=== PATIENT | female | born 1950 | race Caucasian/White ===

== ENCOUNTER 2017-05-21 08:29 | Outpatient (CLI) | payer BC, MEDICARE ==
[2017-05-21 12:52] LABS: CHOL/HDL RATIO 3.5 (<4.4); CHOLESTEROL 224 mg/dL; HDL CHOLESTEROL 64 mg/dL; LDL/HDL RATIO 2.3 (<4.4); TRIGLYCERIDES 75 mg/dL; VLDL CHOLESTEROL 15 mg/dL
[2017-05-21 13:21] LABS: THYROID STIMULATING HORMONE 0.21 uIU/mL (0.34-5.60)
== END 2017-05-21 08:30 | disposition home or self-care (01) ==
LOC: LAB.F 08:29
PROVIDERS: ATTEND Family Medicine
DX: E78.5 Hyperlipidemia, unspecified (principal)
CPT/HCPCS: 36415; 80061; 84439; 84443

== ENCOUNTER 2018-01-22 09:04 | Outpatient (CLI) | payer MEDICARE, BC ==
[2018-01-22 17:45] LABS: BASOPHILS % (AUTO) 0.9 %; EOSINOPHILS # (AUTO) 0.1 10^3/uL (0.0-0.7); EOSINOPHILS % (AUTO) 1.7 %; LYMPHOCYTES # (AUTO) 1.1 10^3/uL (1.5-3.5); LYMPHOCYTES % (AUTO) 25.3 %; MEAN CORPUSCULAR HEMOGLOBIN 29.7 pg (27.0-31.0); MEAN CORPUSCULAR HGB CONC 32.9 g/dL (32.0-36.0); MEAN CORPUSCULAR VOLUME 90.4 fL (81.0-99.0); MEAN PLATELET VOLUME 9.3 fL (7.9-10.8); MONOCYTES # (AUTO) 0.4 10^3/uL (0.0-1.0); MONOCYTES % (AUTO) 9.9 %; NEUTROPHILS # (AUTO) 2.8 10^3/uL (1.5-6.6); NEUTROPHILS % (AUTO) 62.2 %; PLT - PLATELET COUNT 209 10^3/uL (130-450); RED BLOOD COUNT 4.71 10^6/uL (4.20-5.40); RED CELL DISTRIBUTION WIDTH 14.2 % (12.0-15.0); WHITE BLOOD COUNT 4.5 x10^3/uL (4.8-10.8)
== END 2018-01-22 09:05 | disposition home or self-care (01) ==
LOC: LAB.F 09:04
PROVIDERS: ATTEND Family Medicine
DX: M89.9 Disorder of bone, unspecified (principal); E78.5 Hyperlipidemia, unspecified; E55.9 Vitamin D deficiency, unspecified; R41.3 Other amnesia; E03.9 Hypothyroidism, unspecified
CPT/HCPCS: 36415; 80053; 80061; 82306; 82607; 83721; 84443; 85025

== ENCOUNTER 2018-02-01 11:15 | Outpatient (CLI) | payer MEDICARE, BC | END 2018-02-01 11:16 | disposition home or self-care (01) | LOC: DI 11:15 | PROVIDERS: ATTEND Family Medicine | DX: R01.1 Cardiac murmur, unspecified (principal); I08.1 Rheumatic disorders of both mitral and tricuspid valves | CPT/HCPCS: 93306 ==

== ENCOUNTER 2018-02-05 09:12 | Outpatient (CLI) | payer MEDICARE, BC | END 2018-02-05 09:13 | disposition home or self-care (01) | LOC: LAB.F 09:12 | PROVIDERS: ATTEND Family Medicine | DX: M89.9 Disorder of bone, unspecified (principal); E78.5 Hyperlipidemia, unspecified; E03.9 Hypothyroidism, unspecified; E55.9 Vitamin D deficiency, unspecified | CPT/HCPCS: 36415; 80053; 80061; 82306; 83721; 84443 ==

== ENCOUNTER 2018-02-06 08:53 | Outpatient (CLI) | payer MEDICARE, BC ==
[2018-02-06 17:32] LABS: BASOPHILS % (AUTO) 1.1 %; EOSINOPHILS # (AUTO) 0.1 10^3/uL (0.0-0.7); EOSINOPHILS % (AUTO) 2.7 %; HGB - HEMOGLOBIN 13.8 g/dL (12.0-16.0); LYMPHOCYTES # (AUTO) 1.2 10^3/uL (1.5-3.5); LYMPHOCYTES % (AUTO) 29.5 %; MEAN CORPUSCULAR HEMOGLOBIN 29.7 pg (27.0-31.0); MEAN CORPUSCULAR HGB CONC 32.9 g/dL (32.0-36.0); MEAN CORPUSCULAR VOLUME 90.2 fL (81.0-99.0); MEAN PLATELET VOLUME 8.9 fL (7.9-10.8); MONOCYTES # (AUTO) 0.3 10^3/uL (0.0-1.0); MONOCYTES % (AUTO) 8.8 %; NEUTROPHILS # (AUTO) 2.3 10^3/uL (1.5-6.6); NEUTROPHILS % (AUTO) 57.9 %; PLT - PLATELET COUNT 160 10^3/uL (130-450); RED BLOOD COUNT 4.64 10^6/uL (4.20-5.40); RED CELL DISTRIBUTION WIDTH 14.2 % (12.0-15.0); WHITE BLOOD COUNT 3.9 x10^3/uL (4.8-10.8)
[2018-02-06 17:48] LABS: ALBUMIN 4.1 g/dL (3.2-5.5); ALBUMIN/GLOBULIN RATIO 1.4 (1.0-2.2); ALKALINE PHOSPHATASE 80 IU/L (42-121); ALT ALANINE AMINOTRANSFERASE 26 IU/L (10-60); AST ASPARTATE AMINOTRANSFERASE 31 IU/L (10-42); BILIRUBIN,TOTAL 1.3 mg/dL (0.2-1.0); BUN - BLOOD UREA NITROGEN 13 mg/dL (6-20); CALCIUM 9.2 mg/dL (8.5-10.3); CARBON DIOXIDE - CO2 26 mmol/L (21-32); CHLORIDE 103 mmol/L (101-111); CHOL/HDL RATIO 3.8 (<4.4); CHOLESTEROL 189 mg/dL; CREATININE 0.5 mg/dL (0.4-1.0); GFR - MDRD 122 (>89); GLUCOSE 89 mg/dL (70-100); HDL CHOLESTEROL 50 mg/dL; LDL CHOLESTEROL,CALCULATED 124 mg/dL; LDL/HDL RATIO 2.5 (<4.4); SODIUM 137 mmol/L (135-145); TOTAL PROTEIN 7.1 g/dL (6.7-8.2); VLDL CHOLESTEROL 15 mg/dL
[2018-02-06 17:57] LABS: THYROID STIMULATING HORMONE < 0.08 uIU/mL (0.34-5.60)
[2018-02-06 17:58] LABS: DIFFERENTIAL COMMENT MANUAL=AUTO DIFF; PLATELET ESTIMATE, MANUAL NORMAL (130-450,000) (NORMAL); PLATELET MORPHOLOGY NORMAL APPEARANCE (NORMAL); RBC MORPHOLOGY (MULTIPLE) NORMAL APPEARANCE (NORMAL)
[2018-02-06 18:36] LABS: FREE T4 (FREE THYROXINE) 2.03 ng/dL (0.58-1.64)
== END 2018-02-06 08:54 | disposition home or self-care (01) ==
LOC: LAB.F 08:53
PROVIDERS: ATTEND Family Medicine
DX: M89.9 Disorder of bone, unspecified (principal); E78.5 Hyperlipidemia, unspecified; E55.9 Vitamin D deficiency, unspecified; R41.3 Other amnesia; E03.9 Hypothyroidism, unspecified
CPT/HCPCS: 36415; 80053; 80061; 82306; 82607; 83721; 84439; 84443; 85025

== ENCOUNTER 2018-11-24 14:55 | Outpatient (CLI) | payer MEDICARE, BC ==
[2018-11-24 15:21] LABS: ALBUMIN 4.1 g/dL (3.2-5.5); ALBUMIN/GLOBULIN RATIO 1.5 (1.0-2.2); CALCIUM 9.1 mg/dL (8.5-10.3); CREATININE 0.8 mg/dL (0.4-1.0); TOTAL PROTEIN 6.9 g/dL (6.7-8.2)
[2018-11-24 16:14] LABS: HGB - HEMOGLOBIN 13.4 g/dL (12.0-16.0); MEAN CORPUSCULAR HEMOGLOBIN 31.5 pg (27.0-31.0); MEAN CORPUSCULAR HGB CONC 34.4 g/dL (32.0-36.0); MEAN CORPUSCULAR VOLUME 91.4 fL (81.0-99.0); MEAN PLATELET VOLUME 8.1 fL (7.9-10.8); RED BLOOD COUNT 4.27 10^6/uL (4.20-5.40); RED CELL DISTRIBUTION WIDTH 13.6 % (12.0-15.0); WHITE BLOOD COUNT 4.3 x10^3/uL (4.8-10.8)
== END 2018-11-24 14:56 | disposition home or self-care (01) ==
LOC: LAB 14:55
PROVIDERS: ATTEND Dermatology
DX: Z51.81 Encounter for therapeutic drug level monitoring (principal); L43.9 Lichen planus, unspecified
CPT/HCPCS: 36415; 80053; 85027

== ENCOUNTER 2018-12-05 12:19 | Outpatient (CLI) | payer MEDICARE, BC ==
--- NOTE | 2018-12-08 11:42 | DEXA Report ---
Reason: BONE DISORDER Procedure Date: 12/05/2018 Accession Number: [id number] / [id number] Procedure: DEX - Dexa Spine and/or Hip CPT Code: FULL RESULT: EXAM: Dexa Spine and/or Hip DATE: 12/05/2018 12:37 PM CLINICAL HISTORY: BONE DISORDER. Rheumatoid/inflammatory arthritis. Steroid use. Thyroid replacement therapy. Multiple sclerosis. TECHNIQUE: Dual energy x-ray absorptiometry (DXA) was performed on a IActionable System. Regions measured are the AP Spine, femoral neck, and if needed forearm. COMPARISON: None. In accordance with the International Society for Clinical Densitometry (ISCD) guidelines, data from previous exams may be reanalyzed using current recommendations and techniques. This is done to allow a more accurate basis for comparison with the current study. FINDINGS: The data for the lumbar spine is as follows: BMD (g/cm/cm) T-SCORE Z-SCORE REGION L1 1.131 0.0 1.1 L2 1.216 0.1 1.3 L3 1.470 2.3 3.4 L4 1.381 1.5 2.6 TOTAL 1.307 1.1 2.2 NOTE: All evaluable vertebrae are used for classification The data for the hip is as follows: BMD (g/cm/cm) T-SCORE Z-SCORE REGION Neck 0.838 -1.4 -0.1 TOTAL 0.978 -0.2 0.8 NOTE: The femoral neck or total proximal femur, whichever is lowest, is used for classification. IMPRESSION: THE WHO CLASSIFICATION BASED ON THE INTERNATIONAL REFERENCE STANDARD IS OSTEOPENIA. THE FRACTURE RISK IS INCREASED. RECOMMENDATION: Patients with diagnosis of osteoporosis or osteopenia should have regular bone mineral density assessment. For those eligible for Medicare, routine testing is allowed once every 2 years. Testing frequency can be increased for patients who have rapidly progressing disease or for those who are receiving medical therapy to restore bone mass. COMMENT: World Health Organization (WHO) definitions for osteoporosis and osteopenia: NORMAL BMD: T-score at -1.0 or higher, fracture risk is low OSTEOPENIA BMD: T-score between -1.0 and -2.5, fracture risk is increased. OSTEOPOROSIS BMD: T-score at -2.5 or lower, fracture risk is high. National Osteoporosis Foundation recommends: 1. Obtain adequate dietary calcium (at least 1200 mg per day) and vitamin D (400-800 international units per day). 2. Participate, as appropriate, in regular weightbearing and muscle-strengthening exercise. 3. Avoid tobacco use and reduce alcohol and caffeine intake. 4. For more detailed information see the website at www.NOF.org.
== END 2018-12-05 12:20 | disposition home or self-care (01) ==
LOC: DI 12:19
PROVIDERS: ATTEND Nurse Practitioner
DX: M85.89 Other specified disorders of bone density and structure, multiple sites (principal)
CPT/HCPCS: 77080

== ENCOUNTER 2019-04-28 10:51 | Outpatient (CLI) | payer MEDICARE, BC ==
[2019-04-28 17:40] LABS: HGB - HEMOGLOBIN 14.5 g/dL (12.0-16.0); MEAN CORPUSCULAR HEMOGLOBIN 30.6 pg (27.0-31.0); MEAN CORPUSCULAR HGB CONC 32.9 g/dL (32.0-36.0); MEAN CORPUSCULAR VOLUME 93.1 fL (81.0-99.0); RED BLOOD COUNT 4.74 10^6/uL (4.20-5.40); WHITE BLOOD COUNT 4.8 x10^3/uL (4.8-10.8)
[2019-04-28 18:00] LABS: ALBUMIN 4.1 g/dL (3.2-5.5); ALBUMIN/GLOBULIN RATIO 1.2 (1.0-2.2); BILIRUBIN,TOTAL 0.8 mg/dL (0.2-1.0); CALCIUM 9.6 mg/dL (8.5-10.3); CREATININE 0.6 mg/dL (0.4-1.0); TOTAL PROTEIN 7.5 g/dL (6.7-8.2)
== END 2019-04-28 10:52 | disposition home or self-care (01) ==
LOC: LAB.F 10:51
PROVIDERS: ATTEND Dermatology
DX: L43.9 Lichen planus, unspecified (principal); Z51.81 Encounter for therapeutic drug level monitoring
CPT/HCPCS: 36415; 80053; 85027

== ENCOUNTER 2019-04-29 09:39 | Outpatient (CLI) | payer MEDICARE, BC ==
[2019-04-29 12:59] LABS: CHOL/HDL RATIO 3.2 (<4.4); CHOLESTEROL 205 mg/dL; HDL CHOLESTEROL 65 mg/dL; LDL CHOLESTEROL,CALCULATED 118 mg/dL; LDL/HDL RATIO 1.8 (<4.4); VLDL CHOLESTEROL 22 mg/dL
[2019-04-29 13:25] LABS: FREE T4 (FREE THYROXINE) 1.68 ng/dL (0.58-1.64)
== END 2019-04-29 09:40 | disposition home or self-care (01) ==
LOC: LAB.WCP 09:39
PROVIDERS: ATTEND Family Medicine
DX: E78.5 Hyperlipidemia, unspecified (principal); E03.9 Hypothyroidism, unspecified
CPT/HCPCS: 36415; 80061; 83721; 84439; 84443

== ENCOUNTER 2021-01-17 08:00 | Outpatient (CLI) | payer MEDICARE, OTHER | END 2021-01-17 08:01 | disposition home or self-care (01) | LOC: DI 08:00 | PROVIDERS: ATTEND Internal Medicine Hematology & Oncology | DX: C50.412 Malignant neoplasm of upper-outer quadrant of left female breast (principal); I34.0 Nonrheumatic mitral (valve) insufficiency | CPT/HCPCS: 93306 ==

== ENCOUNTER 2021-04-18 07:50 | Outpatient (CLI) | payer MEDICARE, OTHER | END 2021-04-18 07:51 | disposition home or self-care (01) | LOC: DI 07:50 | PROVIDERS: ATTEND Internal Medicine Hematology & Oncology | DX: C50.412 Malignant neoplasm of upper-outer quadrant of left female breast (principal); I27.20 Pulmonary hypertension, unspecified; I51.7 Cardiomegaly | CPT/HCPCS: 93306 ==

== ENCOUNTER 2021-05-15 14:45 | Outpatient (CLI) | payer MEDICARE, OTHER ==
[2021-05-15] MEDS ORDERED: GADOBUTROL 10 MMOL/10 ML VIAL ONE (14:59)
[2021-05-15] MEDS ORDERED: GADOBUTROL 10 MMOL/10 ML VIAL IVP ONE (17:02)
--- NOTE | 2021-05-16 11:35 | MRI Report ---
PROCEDURE: Brain W/WO INDICATIONS: BREAST CA, R/P BRAIN METS CONTRAST: IV CONTRAST: Optiray 320 ml: 7 TECHNIQUE: Noncontrast axial T1 spin echo, axial T2 fast spin echo, sagittal and axial FLAIR, coronal T2 fast sp in echo, axial gradient echo, axial diffusion and ADC through the brain. After the administration of contrast, axial and coronal T1 spin echo with fat saturation through the brain. COMPARISON: Bone scan 08/24/2020 FINDINGS: Image quality: Excellent. CSF spaces: Basal cisterns are patent. No extra-axial fluid collections. Ventricles are normal in size and shape. Brain: No midline shift. No intracranial bleeds or masses. No abnormal intracranial enhancement. There is cerebral volume loss for age. There is periventricular white matter chronic small vessel is chemic change. The brainstem appears normal. Diffusion-weighted images demonstrate no acute ischemi c insults. No chronic ischemic insults. Normal intravascular flow voids are present. Skull and face: Calvarial marrow is normal in signal. Orbits appear normal. Sinuses: Sinuses and mastoids appear clear. IMPRESSION: 1. No acute intracranial process. 2. Moderate atrophy and chronic microvascular ischemic changes. 3. No evidence of metastatic disease. Reviewed by: Magda Lopez MD on 05/16/2021 11:33 AM PDT Approved by: Magda Lopez MD on 05/16/2021 11:33 AM PDT Station ID: [id number]
== END 2021-05-15 14:46 | disposition home or self-care (01) ==
LOC: DI 14:45
PROVIDERS: ATTEND Specialist
DX: C50.412 Malignant neoplasm of upper-outer quadrant of left female breast (principal)
CPT/HCPCS: 70553; A9585

== ENCOUNTER 2021-06-23 08:00 | Outpatient (CLI) | payer MEDICARE, OTHER | END 2021-06-23 23:59 | disposition home or self-care (01) | LOC: LAB.S 08:00 | PROVIDERS: ATTEND Physician Assistant Medical | DX: R10.32 Left lower quadrant pain (principal) | CPT/HCPCS: 87086 ==

== ENCOUNTER 2021-06-27 10:48 | Emergency (ER) | payer MEDICARE, OTHER ==
--- NOTE | 2021-06-27 13:16 | ED Physician Documentation ---
History of Present Illness - Stated complaint Stated Complaint: ABD PX - Chief complaint Chief Complaint: Abd Pain - History obtained from History obtained from: Patient, Family - Additonal information Additional information: Patient comes emergency department chief complaint of abdominal pain and constipation that Has been going on since she began her most recent chemotherapeutic agent. She states it has been roughly a month, and that she has been on various stool softeners and laxatives. She states that she is currently taking cold right and MiraLAX, but it does not seem to be doing anything for her. She states that she had a small, firm bowel movement this morning and that her last member for that was 5 days ago and was also smaller than expected. Patient states she has been eating normally as far as amounts of food and that she tries to get some fiber in her diet. Patient states that the only thing that seems to have worked for her previously is senna, but it gave her very bad diarrhea and so she decided not to use that again. She also states that her PA told her not to take laxatives on a regular basis, Because it could cause her bowels not to work properly. As such, the patient has not tried senna again. Patient denies any nausea or vomiting. She states she initially had left lower quadrant abdominal pain that has slowly spread across her lower abdomen and now she has a little discomfort in her upper abdomen, 2. Patient denies any other complaints at this time. She is currently being treated for breast cancer, though she states she has been told by her oncologist that she is cancer free. She had a double mastectomy this spring and has been on a variety of chemotherapeutic agents over the course of her perez with cancer. She states she has about 10 more months on the current regimen before she switches to hormonal therapy. No other complaints at this time. No fevers or chills. No dysuria. No back pain. Review of Systems Ten Systems: 10 systems reviewed and negative Constitutional: reports: Reviewed and negative. denies: Fever Eyes: reports: Reviewed and negative Ears: reports: Reviewed and negative Nose: reports: Reviewed and negative Throat: reports: Reviewed and negative Cardiac: reports: Reviewed and negative Respiratory: reports: Reviewed and negative GI: reports: Abdominal Pain, Constipation. denies: Nausea, Vomiting, Diarrhea : reports: Reviewed and negative Skin: reports: Reviewed and negative Musculoskeletal: reports: Reviewed and negative Neurologic: reports: Reviewed and negative Psychiatric: reports: Reviewed and negative Endocrine: reports: Reviewed and negative Immunocompromised: reports: Reviewed and negative PD PAST MEDICAL HISTORY - Past Medical History Past Medical History: Yes Cardiovascular: High cholesterol Respiratory: None Neuro: Multiple sclerosis Endocrine/Autoimmune: HyPOthyroidism GI: Other [employer]: Breast cancer : Frequency HEENT: Chronic hearing loss Psych: None Musculoskeletal: Fibromyalgia Derm: Other - Past Surgical History Past Surgical History: Yes Ortho: Knee replacement /[employer]: Mastectomy - Present Medications Home Medications: Ambulatory Orders Medication Instructions Recorded Confirmed Lidocaine/Prilocain 2.5% Cream 5 applic TOP UD #1 tube 10/04/20 06/27/21 [Emla 2.5% Cream] Magic Mouth Wash 15 ml PO Q4HR PRN 10/11/20 06/27/21 Docusate Sodium 100Mg Capsule 100 mg PO BID 06/27/21 06/27/21 [Colace 100Mg Capsule] Levothyroxine Sodium [Synthroid] 150 mcg PO DAILY 06/27/21 06/27/21 polyethylene glycoL 3350 [Miralax] 17 gm PO DAILY 06/27/21 06/27/21 - Allergies Allergies/Adverse Reactions: Allergies Allergy/AdvReac Type Severity Reaction Status Date / Time No Known Drug Allergies Allergy Verified 06/27/21 10:54 - Social History Does the pt smoke?: No Smoking Status: Never smoker Does the pt drink ETOH?: Yes Does the pt have substance abuse?: Yes Substance Use and Type: CBD oil / Products - Immunizations Immunizations are current?: Yes PD ED PE NORMAL - Vitals Vital signs reviewed: Yes - General General: Alert and oriented X 3, No acute distress, Well developed/nourished - HEENT HEENT: Atraumatic, PERRL, EOMI, Moist mucous membranes - Neck Neck: Supple, no meningeal sign - Cardiac Cardiac: RRR, No murmur - Respiratory Respiratory: No respiratory distress, Clear bilaterally - Abdomen Abdomen: Soft, Non distended, Other (Mild tenderness in epigastrium, as well as across low abdomen. No rebound or guarding. No particular area of more intense tenderness.) - Back Back: No CVA TTP - Derm Derm: Normal color, Warm and dry, No rash - Extremities Extremities: No deformity, No edema, No calf tenderness / cord - Neuro Neuro: Alert and oriented X 3 - Psych Psych: Normal mood, Normal affect Results - Vitals Vitals: Vital Signs - 24 hr 06/27/21 06/27/21 06/27/21 10:54 11:20 13:58 Temperature 36.6 C 36.8 C Heart Rate 88 78 76 Respiratory 16 18 20 Rate Blood Pressure 161/83 H 153/80 H 146/107 H O2 Saturation 97 98 98 06/27/21 15:19 Temperature 36.8 C Heart Rate 77 Respiratory 16 Rate Blood Pressure 149/97 H O2 Saturation 98 Oxygen O2 Source Room air - Labs Labs: Laboratory Tests 06/27/21 06/27/21 13:50 13:50 WBC 3.3 L RBC 4.18 L Hgb 12.2 Hct 37.0 MCV 88.5 MCH 29.2 MCHC 33.0 RDW 16.3 H Plt Count 69 L MPV 10.7 Neut # (Auto) 1.3 L Lymph # (Auto) 1.4 L Hamilton # (Auto) 0.5 Eos # (Auto) 0.1 Baso # (Auto) 0.0 Absolute Nucleated RBC 0.00 Nucleated RBC % 0.0 Sodium 138 Potassium 3.3 L Chloride 101 Carbon Dioxide 28 Anion Gap 9.0 BUN 6 Creatinine 0.5 Estimated GFR (MDRD) 121 Glucose 97 Calcium 9.3 Total Bilirubin 1.5 H AST 49 H ALT 31 Alkaline Phosphatase 82 Total Protein 6.9 Albumin 3.6 Globulin 3.3 Albumin/Globulin Ratio 1.1 Lipase 35 - Rads (name of study) ct abd pelvis Radiology: Final report received, EMP read indepedently, See rad report (nad) PD MEDICAL DECISION MAKING - ED course Complexity details: reviewed old records, reviewed results, re-evaluated patient, considered differential, d/w patient ED course: The patient was worked up with labs and CT scan of the abdomen and pelvis. The patient initially expressed that she would like to have an enema in the emergency department, but ultimately ended up declining this. Her CT scan was unremarkable for any acute or serious/emergent condition. The patient's main concern seem to be that she was afraid she would not be able to have her knee surgery which is coming up in the near future, if she was having issues with constipation or possible obstruction. I have discussed with her that she should check with her surgeon to determine for sure but that I do not anticipate this being a problem. We have discussed that she should continue on her stools softeners and use intermittent extra doses of laxatives in between if needed. Departure - Departure Disposition: 01 Home, Self Care Clinical Impression: Constipation Qualifiers: Constipation type: slow transit constipation Qualified Code(s): K59.01 - Slow transit constipation Condition: Stable Instructions: ED Constipation Comments: Your CT scan looks good. There is no evidence of a bowel obstruction or any other emergent condition causing your constipation or pain. Please take the enema at home as needed. You may take spot doses of laxative to help move your bowels if you go more than for 5 days without a bowel movement. There is no reason this should interfere with the upcoming surgery you have scheduled later this week. Discharge Date/Time: 06/27/21 15:25
[2021-06-27 13:53] LABS: BASOPHILS % (AUTO) 0.6 %; EOSINOPHILS # (AUTO) 0.1 10^3/uL (0.0-0.7); EOSINOPHILS % (AUTO) 2.1 %; HGB - HEMOGLOBIN 12.2 g/dL (12.0-16.0); LYMPHOCYTES # (AUTO) 1.4 10^3/uL (1.5-3.5); LYMPHOCYTES % (AUTO) 41.4 %; MEAN CORPUSCULAR HEMOGLOBIN 29.2 pg (27.0-31.0); MEAN CORPUSCULAR VOLUME 88.5 fL (81.0-99.0); MEAN PLATELET VOLUME 10.7 fL (7.9-10.8); MONOCYTES # (AUTO) 0.5 10^3/uL (0.0-1.0); MONOCYTES % (AUTO) 15.3 %; NEUTROPHILS # (AUTO) 1.3 10^3/uL (1.5-6.6); NEUTROPHILS % (AUTO) 40.3 %; PLT - PLATELET COUNT 69 10^3/uL (130-450); RED BLOOD COUNT 4.18 10^6/uL (4.20-5.40); RED CELL DISTRIBUTION WIDTH 16.3 % (12.0-15.0); WHITE BLOOD COUNT 3.3 x10^3/uL (4.8-10.8)
[2021-06-27 14:06] LABS: ALBUMIN 3.6 g/dL (3.2-5.5); ALBUMIN/GLOBULIN RATIO 1.1 (1.0-2.2); BILIRUBIN,TOTAL 1.5 mg/dL (0.2-1.0); CALCIUM 9.3 mg/dL (8.5-10.3); CREATININE 0.5 mg/dL (0.4-1.0); POTASSIUM 3.3 mmol/L (3.5-5.0); TOTAL PROTEIN 6.9 g/dL (6.7-8.2)
[2021-06-27] MEDS ORDERED: IOPAMIDOL-300 100 ML VIAL ONE (14:16)
[2021-06-27] MEDS ORDERED: IOPAMIDOL-300 100 ML VIAL IVP ONE (14:37)
--- NOTE | 2021-06-27 14:59 | CT Report ---
PROCEDURE: Abdomen/Pelvis W INDICATIONS: abd pain, no BM CONTRAST: IV CONTRAST: Isovue 300 ml: 100 PO CONTRAST: *NO PO CONTRAST TECHNIQUE: After the administration of IV contrast, 5 mm thick sections acquired from the diaphragms to the symp hysis. 5 mm thick coronal and sagittal reformats were acquired. For radiation dose reduction, the f ollowing was used: automated exposure control, adjustment of mA and/or kV according to patient size. COMPARISON: CT dated 08/24/2020 FINDINGS: Image quality: Excellent. ABDOMEN: Lung bases: Lung bases are clear. Heart size is normal. Solid organs: Liver and spleen are normal in size. There is a peripherally enhancing hypodense focus within the right hepatic lobe posteriorly measuring 22 mm, consistent with a hemangioma. Gallbladder is grossly unremarkable Biliary system is non dilated. Pancreas enhances normally. No adrenal nod ules. Kidneys demonstrate normal size and enhancement, without hydronephrosis. Peritoneum and bowel: Bowel loops demonstrate normal wall thickness and caliber. No free fluid or a ir. Nodes and vessels: No retroperitoneal or mesenteric adenopathy by size criteria. Aorta and inferior vena cava are normal in size. Miscellaneous: No ventral hernias. PELVIS: Genitourinary: Bladder wall thickness is normal. Miscellaneous: No inguinal hernias or adenopathy. Bones: No suspicious bony lesions. No vertebral body compression fractures. IMPRESSION: 1. No acute process. 2. Probable right hepatic lobe hemangioma. Confirmation with nonemergent outpatient follow-up liver p rotocol MRI is recommended. 3. Appendix not seen. No evidence of appendicitis. Reviewed by: Joshua Faith MD on 06/27/2021 2:57 PM PDT Approved by: Joshua Faith MD on 06/27/2021 2:57 PM PDT Station ID: [id number]
[2021-06-27 15:20] VITALS: BP 149/97
== END 2021-06-27 15:25 | disposition home or self-care (01) ==
LOC: ED 10:48
DX: K59.01 Slow transit constipation (principal); D49.3 Neoplasm of unspecified behavior of breast
CPT/HCPCS: 36415; 74177; 80053; 83690; 85025; 99284; 99285; Q9967

== ENCOUNTER 2021-10-18 09:15 | Outpatient (CLI) | payer MEDICARE, OTHER | END 2021-10-18 09:16 | disposition home or self-care (01) | LOC: DI 09:15 | PROVIDERS: ATTEND Internal Medicine Hematology & Oncology | DX: I08.1 Rheumatic disorders of both mitral and tricuspid valves (principal); C77.9 Secondary and unspecified malignant neoplasm of lymph node, unspecified | CPT/HCPCS: 93306 ==

== ENCOUNTER 2021-12-22 08:24 | Outpatient (CLI) | payer MEDICARE, OTHER ==
--- NOTE | 2021-12-22 17:55 | DEXA Report ---
PROCEDURE: Dexa Spine and/or Hip INDICATIONS: POST MENOPAUSAL TECHNIQUE: Dual energy x-ray absorptiometry (DXA) was performed on a Modular Patterns System. Regions measur ed are the AP Spine, femoral neck, and if needed forearm. COMPARISON: 12/05/2018. FINDINGS: Lumbar Spine: Bone Mineral Density 1.240 g/cm/cm,T score 0.5, normal Left Hip: Bone Mineral Density 0.920 g/cm/cm,T score -0.7, normal Left Femoral Neck: Bone Mineral Density 0.781 g/cm/cm, T score sinus 1.8, normal (T score greater or equal to -1.0: NORMAL) (T score from -1.1 to -2.4: OSTEOPENIA) (T score less than or equal to -2.5 to: OSTEOPOROSIS) Impression: Osteopenia. Bone mineral density has decreased 5.9% in the interval since prior exam obta glennd 12/05/2018. Patients with diagnosis of osteoporosis or osteopenia should have regular bone mineral density assess ment. For those eligible for Medicare, routine testing is allowed once every 2 years. Testing frequ ency can be increased for patients who have rapidly progressing disease or for those who are receivin g medical therapy to restore bone mass. Reviewed by: Heather Dowling MD, PhD on 12/22/2021 5:54 PM PST Approved by: Heather Dowling MD, PhD on 12/22/2021 5:54 PM PST Station ID: [id number]
== END 2021-12-22 08:25 | disposition home or self-care (01) ==
LOC: DI 08:24
PROVIDERS: ATTEND Internal Medicine Hematology & Oncology
DX: Z78.0 Asymptomatic menopausal state (principal); G35 Multiple sclerosis

== ENCOUNTER 2021-12-22 08:28 | Outpatient (CLI) | payer MEDICARE, OTHER ==
--- NOTE | 2021-12-22 17:01 | Ultrasound Report ---
PROCEDURE: Bladder INDICATIONS: MULTIPLE SCLEROSIS, POST VOID BLADDER RESIDUAL TECHNIQUE: Ultrasound of the urinary bladder is performed COMPARISON: None. FINDINGS: Prevoid urinary bladder volume is 270 cc. Postvoid residual is 100 cc. Bilateral ureteral jets are se en. IMPRESSION: Moderate postvoid residual in the urinary bladder. Reviewed by: Joshua Faith MD on 12/22/2021 4:59 PM PST Approved by: Joshua Faith MD on 12/22/2021 4:59 PM PST Station ID: [id number]
== END 2021-12-22 08:29 | disposition home or self-care (01) ==
LOC: DI 08:28
PROVIDERS: ATTEND Internal Medicine
DX: G35 Multiple sclerosis (principal)

== ENCOUNTER 2021-12-28 09:14 | Outpatient (CLI) | payer MEDICARE, OTHER | END 2021-12-28 09:15 | disposition home or self-care (01) | LOC: DI 09:14 | PROVIDERS: ATTEND Internal Medicine Hematology & Oncology | DX: C50.412 Malignant neoplasm of upper-outer quadrant of left female breast (principal); I51.7 Cardiomegaly; I27.20 Pulmonary hypertension, unspecified; I34.0 Nonrheumatic mitral (valve) insufficiency; I49.3 Ventricular premature depolarization | CPT/HCPCS: 93306 ==

== ENCOUNTER 2022-03-12 12:58 | Outpatient (CLI) | payer MEDICARE, OTHER ==
--- NOTE | 2022-03-12 15:17 | XRAY Report ---
PROCEDURE: Hips 2V BILAT INDICATIONS: BILATERAL HIP PAIN TECHNIQUE: AP view the pelvis and frog-leg lateral views of each hip. COMPARISON: Hip radiographs 08/05/2017 FINDINGS: Bones: No fractures or dislocations. No suspicious bony lesions. The visualized pelvic ring appear s intact. Mild degenerative changes are seen in the hips bilaterally. Degenerative changes are parti ally imaged in the lower lumbar spine. Soft tissues: No suspicious soft tissue calcifications or masses. IMPRESSION: Mild bilateral hip osteoarthrosis. No acute osseous abnormality. If symptoms persist or there is cont inued clinical concern, further evaluation with MRI or CT may be helpful. Reviewed by: Amari Gooden MD on 03/12/2022 3:16 PM PDT Approved by: Amari Gooden MD on 03/12/2022 3:16 PM PDT Station ID: [id number]
--- NOTE | 2022-03-12 15:19 | XRAY Report ---
PROCEDURE: Lumbar Spine 2 View INDICATIONS: LOWER BACK PAIN TECHNIQUE: 2 views of the lumbar spine were acquired. COMPARISON: None. FINDINGS: Bones: 5 [id number] vertebrae are present with tiny rudimentary ribs at the T12 level. Mild dex troconvex curvature of the lumbar spine. No vertebral body compression fractures. No suspicious bony lesions. Multilevel disc space narrowing and degenerative endplate changes are seen. There is facet hypertrophy throughout the lumbar spine. Soft tissues: Overlying bowel gas pattern is normal. No suspicious soft tissue calcifications. Aor tic atherosclerotic calcifications are present. IMPRESSION: No acute osseous abnormality. Moderate multilevel spondylosis. Mild dextroconvex curvatu re. Reviewed by: Amari Gooden MD on 03/12/2022 3:18 PM PDT Approved by: Amari Gooden MD on 03/12/2022 3:18 PM PDT Station ID: [id number]
== END 2022-03-12 12:59 | disposition home or self-care (01) ==
LOC: DI 12:58
PROVIDERS: ATTEND Physician Assistant
DX: M16.0 Bilateral primary osteoarthritis of hip (principal); M47.816 Spondylosis without myelopathy or radiculopathy, lumbar region; M51.36 Other intervertebral disc degeneration, lumbar region; M48.061 Spinal stenosis, lumbar region without neurogenic claudication

== ENCOUNTER 2022-05-29 11:01 | Outpatient (CLI) | payer MEDICARE, OTHER ==
[2022-05-29] MEDS ORDERED: [UNRECOGNIZED DRUG - OTHER] IV ONE (12:00)
[2022-05-29] MEDS ORDERED: ZOLEDRONIC ACID IV ONE (12:00)
--- NOTE | 2022-05-29 13:06 | XRAY Report ---
PROCEDURE: Cervical Spine 2 View INDICATIONS: NECK PAIN, CERIVALIGA TECHNIQUE: 4 view(s) of the cervical spine were acquired. COMPARISON: None. FINDINGS: Bones: No fractures or dislocations to the C7-T1 level. The lateral masses of C1 appear intact on t he odontoid view. No suspicious bony lesions. There is a small limbus vertebra at C6-7. Soft tissues: No prevertebral soft tissue swelling. IMPRESSION: No acute radiographic findings. Reviewed by: Nancy Hutton MD on 05/29/2022 1:05 PM PDT Approved by: Nancy Hutton MD on 05/29/2022 1:05 PM PDT Station ID: [id number]
== END 2022-05-29 11:02 | disposition home or self-care (01) ==
LOC: DI 11:01
PROVIDERS: ATTEND Nurse Practitioner Family
DX: M54.2 Cervicalgia (principal)

== ENCOUNTER 2022-09-11 15:02 | Outpatient (CLI) | payer MEDICARE, OTHER ==
--- NOTE | 2022-09-11 18:46 | Ultrasound Report ---
PROCEDURE: Pelvic w/Transvaginal INDICATIONS: POST MENOPAUSAL BLEEDING TECHNIQUE: Real-time scanning was performed of the pelvic organs, with image documentation. Additional endovagi nal scanning was necessary due to incomplete visualization of the adnexal and endometrial structures by transabdominal scanning. COMPARISON: CT abdomen and pelvis with, 06/27/2021 and 08/24/2020. FINDINGS: Uterus: Uterus is anteverted and normal in size at 6.3 x 2.6 x 3.6 cm. The myometrium is homogeneou s. The endometrium measures 6.8 mm in combined thickness. Cervix is heterogeneous with nabothian cy sts. Ovaries: Somewhat poor visualization of ovaries. The right ovary measures 2.1 x 1.2 x 1.0 cm, with a calculated ovarian volume of 1.5 cc. The left ovary measures 1.5 x 0.9 x 1.0 cm, with a calculated ovarian volume of 0.7 cc. The ovaries have a normal sonographic appearance. Less than 12 follicles can be seen in each ovary. No adnexal masses are seen. Other: No pathologic free abdominal or pelvic fluid. IMPRESSION: 1. Thickened endometrium. In this patient with postmenopausal bleeding, endometrial cancer needs be e xcluded. Recommend endometrial sampling. 2. Ovaries are suboptimally visualized but no abnormality is seen. Reviewed by: Nick Bear MD on 09/11/2022 6:44 PM PDT Approved by: Nick Bear MD on 09/11/2022 6:44 PM PDT Station ID: [id number]
== END 2022-09-11 15:03 | disposition home or self-care (01) ==
LOC: DI 15:02
PROVIDERS: ATTEND Obstetrics & Gynecology
DX: R93.89 Abnormal findings on diagnostic imaging of other specified body structures (principal); Z15.01 Genetic susceptibility to malignant neoplasm of breast; Z15.02 Genetic susceptibility to malignant neoplasm of ovary; Z15.09 Genetic susceptibility to other malignant neoplasm; Z01.810 Encounter for preprocedural cardiovascular examination
CPT/HCPCS: 93005

== ENCOUNTER 2023-04-08 11:05 | Emergency (ER) | payer MEDICARE, OTHER ==
[2023-04-08 11:14] VITALS: BP 129/71
--- NOTE | 2023-04-08 11:35 | ED Physician Documentation ---
History of Present Illness - Stated complaint Stated Complaint: ABD PX - Chief complaint Chief Complaint: Abd Pain - Additonal information Additional information: 73-year-old female who has a remote history of breast cancer in remission prese nts to the emergency department for several days of left lower quadrant abdominal pain worse when sitting for long periods of time. Pain does not radiate. No fevers, no nausea or vomiting. Reports colonoscopy 2 years ago which showed no polyps. She does have a history of remote breast cancer currently in remission. She states that for several days she was dehydrated and after passing some harder stools her bowel movements are now normal and she has no pain with defecation. Patient's has been checked into our emergency department for several hours for evaluation of chest pain. Patient reports to me that she would not have checked in today with the exception that her was already here. Review of Systems Constitutional: reports: Reviewed and negative Throat: reports: Reviewed and negative Respiratory: reports: Reviewed and negative GI: reports: Abdominal Pain, Constipation. denies: Nausea, Vomiting, Diarrhea, Hematemesis, Bloody / black stool : reports: Reviewed and negative Skin: reports: Reviewed and negative PD PAST MEDICAL HISTORY - Past Medical History Cardiovascular: High cholesterol Respiratory: None Neuro: Multiple sclerosis Endocrine/Autoimmune: HyPOthyroidism GI: Other TURF MANAGER: Breast cancer : Frequency HEENT: Chronic hearing loss Psych: None Musculoskeletal: Fibromyalgia Derm: Other - Past Surgical History Past Surgical History: Yes Ortho: Knee replacement /TURF MANAGER: Mastectomy - Present Medications Home Medications: Ambulatory Orders Medication Instructions Recorded Confirmed Lidocaine/Prilocain 2.5% Cream 5 applic TOP UD #1 tube 10/04/20 12/04/22 [Emla 2.5% Cream] Levothyroxine Sodium [Synthroid] 150 mcg PO DAILY 06/27/21 12/04/22 polyethylene glycoL 3350 [Miralax] 17 gm PO DAILY 06/27/21 12/04/22 Losartan Potassium 25 mg PO DAILY 90 Days #90 tablet 03/12/22 12/04/22 Anastrozole 1 mg PO DAILY 02/04/23 02/04/23 - Allergies Allergies/Adverse Reactions: Allergies Allergy/AdvReac Type Severity Reaction Status Date / Time No Known Drug Allergies Allergy Verified 04/08/23 11:13 - Social History Does the pt smoke?: No Smoking Status: Never smoker Does the pt drink ETOH?: Yes Does the pt have substance abuse?: Yes - Immunizations Immunizations are current?: Yes PD ED PE NORMAL - General General: Alert and oriented X 3, No acute distress - Cardiac Cardiac: RRR, No murmur - Respiratory Respiratory: No respiratory distress, Clear bilaterally - Abdomen Abdomen: Normal bowel sounds, Soft, Non tender (Very mild tenderness with palpation of the left lower quadrant. No guarding or rebound. 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 No fevers, vomiting, diarrhea or bloody stools. She was constipated and after passing some hard stools yesterday is having more normal stools today. Patient reported to me that she would not of checked and except that her was already here so she decided to get checked out. I discussed with her that my differential would include diverticulitis, colon mass/cancer, ureter lit hiasis, urinary tract infection, and bowel obstruction; Though this was not a complete differential list. Patient's abdominal exam was rather benign with mild left lower quadrant tenderness elicited. There were no peritoneal signs. No guarding or rebound. I did offer the patient CBC, electrolytes as well as a CT scan for further differentiation and evaluation of the belly painbut she felt that all of that work-up was not necessary. She stated that if her symptoms did not improve she would check back in. I offered her to follow closely with a primary care doctor to discuss this ED visit. Departure - Departure Disposition: 01 Home, Self Care Clinical Impression: Left lower quadrant abdominal pain Condition: Stable Record reviewed to determine appropriate education?: Yes Instructions: Abdominal Pain Comments: You checked into the emergency department today because for the last several days you have been having some left lower quadrant abdominal pain that seems worse when sitting for long periods of time. You did report that you were constipated but that has resolved. As discussed the considerations for your abdominal pain include diverticulitis, colon cancer or colon mass, small bowel obstruction, kidney stones, urinary tract infection as some of the more common concerns. I did offer you labs and CT imaging but you have declined that today. You are preferring to wait a day or 2 to see if your symptoms resolve. If they do not, they worsen, you develop fevers then you should check in immediately to the ER for reevaluation. I encourage you to discuss this brief ED visit with your primary care provider. They may elect to do outpatient labs or testing based on your symptoms
== END 2023-04-08 12:06 | disposition home or self-care (01) ==
LOC: ED 11:05
DX: R10.32 Left lower quadrant pain (principal); E03.9 Hypothyroidism, unspecified; E78.00 Pure hypercholesterolemia, unspecified; G35 Multiple sclerosis; Z79.899 Other long term (current) drug therapy
CPT/HCPCS: 80053; 83690; 85025; 99283

== ENCOUNTER 2023-09-17 07:06 | Outpatient (CLI) | payer MEDICARE, OTHER ==
--- NOTE | 2023-09-17 08:16 | CARDIAC PROCEDURE NOTE ---
Stress Test Report Service Date: 09/17/23 Service Time: 08:00 Ordering Provider: Mirta Beckwith NP Indication for Test: Assess intermittent chest discomfort and progressive fatigue. Significant Medical History: Juany is referred for a treadmill stress echocardiogram today to evaluate intermittent chest discomfort and increasing fatigue. She has an elevated cardiac risk factor profile as detailed below, including multiple family members with CAD. She also has been treated for breast cancer with surgery, chemotherapy and radiation. She is generally active, participating in water aerobics 3 times per week and walking a few days per week as well. She reports that for the past 6 to 8 weeks she has had intermittent episodes of chest heavy chest discomfort, occurring primarily at rest rather than with activity and lasting as long as an hour. She describes this as a substernal discomfort that does not radiate and it is not associated with increased shortness of breath, nausea, vomiting or diaphoresis. She says that most recently increased fatigue is her biggest concern. She has been treated for high blood pressure for approximately 1 year and has had borderline elevated cholesterol (last panel 10/16 included total cholesterol 191, LDLc 103, HDLc 68, TG 50); she has not been treated with a statin in the past. Cardiac Risk Factors: Positive for hypertension, hyperlipidemia and marked family CAD history (both parents, two sisters and maternal grandparents); negative for history of tobacco smoking ever and diabetes. Type of Stress Test: ETT with Echocardiography Procedure: -Exercise Treadmill Test- After signing informed consent, the patient underwent echo imaging at rest and then performed treadmill exercise using a Aaron protocol. The patient exercised for 5 minutes 50 seconds and achieved a peak heart rate of 140 (96 percent predicted maximum heart rate for age), and an estimated workload of 7.1 METS. The test was terminated due to fatigue/shortness of breath and chest discomfort. Resting heart rate: 72 Peak heart rate: 140 Normal response to exercise. Resting BP: 133/73 Peak BP: 199/70 Normal BP response to exercise. Rhythm during exercise: Sinus rhythm throughout with rare PVCs. Symptoms: She reported onset of her usual chest discomfort in early stage 2, with full resolution 2 minutes into Recovery. EKG at rest showed normal sinus rhythm with rSr' pattern in V1 suggestive of right ventricular conduction delay with normal ST/T pattern. EKG at peak stress showed horizontal ST depression of 1.0 mm in leads V5 & V6, likely meeting diagnostic criteria for inducible ischemia. In Recovery HR and BP rapidly and normally decreased towards baseline levels. Echo imaging performed at rest and with stress will be reported separately. Silas Vaz MD, was present throughout this treadmill stress study and supervised it in its entirety. Summary: 1) Exercise tolerance slighly above average for age and sex as evidenced by ARIANA of -9%. 2) Normal resting EKG. 3) Adequate level of exercise was achieved on this treadmill stress test. 4) Normal BP response to exercise. 5) Borderline ischemic changes by EKG criteria were seen at peak stress, in the presence of chest discomfort similar in nature to that which prompted the study. 6) Echo image interpretation reveals normal left ventricular size, wall thickness and systolic function, with appropriate hyperdynamic augmentation of all segments with exercise, indicating no evidence of prior infarct or inducible ischemia. Stress images were obtained at heart rate below target (85% PMHR), thus echocardiographic evidence of ischemia cannot be excluded at higher heart rate. Screening images were notable for bi-atrial enlargement and elevation of estimated pulmonary artery systolic pressure to 44 mmHg screening study. See separate report for more details. Conclusions and Recommendations: 1) Given recreation of patient's usual chest discomfort with associated borderline ST depression, this is likely a positive study for ischemia, even though preliminary echo image review does not appear to reveal regional hypokinesis as a marker of significant ischemia. 2) It would be very reasonable for Juany to initiate a daily enteric coated 81 mg ASA tablet and low dose atorvastatin or rosuvastatin, and to be prescribed SL NTG to be used prn for recurrent discomfort and to undergo formal Cardiology evaluation to discuss coronary angiography for definitive diagnosis. 3) Recommendations discussed with referring provider (Mirta Fly) following conclusion of the study.
== END 2023-09-17 07:07 | disposition home or self-care (01) ==
LOC: DI 07:06
PROVIDERS: ATTEND Nurse Practitioner Family
DX: R07.9 Chest pain, unspecified (principal); I27.20 Pulmonary hypertension, unspecified; I07.1 Rheumatic tricuspid insufficiency
CPT/HCPCS: 93350

== ENCOUNTER 2024-01-30 14:03 | Outpatient (CLI) | payer MEDICARE, OTHER ==
--- NOTE | 2024-01-30 20:23 | XRAY Report ---
PROCEDURE: Shoulder 2+V BL INDICATIONS: SHOULER PAIN TECHNIQUE: 3 views of the shoulder were acquired. COMPARISON: None FINDINGS: Bones: Bilateral glenohumeral joint space and narrowing with inferior marginal osteophytes present wi th subchondral sclerosis. Subchondral cysts noted in the greater tuberosity. Bilateral axillary vascu lar clips noted. Port-A-Cath in place Soft tissues: No suspicious soft tissue calcifications. IMPRESSION: Bilateral moderate to severe glenohumeral osteoarthritis Reviewed by: David Malloy MD on 01/30/2024 7:21 PM AKST Approved by: David Malloy MD on 01/30/2024 7:21 PM AKST Station ID: [id number]
== END 2024-01-30 14:04 | disposition home or self-care (01) ==
LOC: DI.S 14:03
PROVIDERS: ATTEND Nurse Practitioner Family
DX: M19.012 Primary osteoarthritis, left shoulder (principal); M19.011 Primary osteoarthritis, right shoulder